=== PATIENT | male | born 1985 | race Caucasian/White ===

== ENCOUNTER 2019-10-14 13:37 | Emergency (ER) | payer SELFPAY ==
[~2019-10-14] VITALS: Ht 182.9 cm; Wt 83.3 kg
[2019-10-14 13:41] VITALS: BP 103/66
== END 2019-10-14 16:06 | disposition home or self-care (01) ==
LOC: ED 15:55
DX: Z03.818 Encounter for observation for suspected exposure to other biological agents ruled out (principal); S62.366A Nondisplaced fracture of neck of fifth metacarpal bone, right hand, initial encounter for closed fracture; X50.1XXA Overexertion from prolonged static or awkward postures, initial encounter; Y93.89 Activity, other specified; Y92.098 Other place in other non-institutional residence as the place of occurrence of the external cause; Y99.8 Other external cause status
CPT/HCPCS: 29125; 73130; 99284; U0001